=== PATIENT | male | born 1975 | race Caucasian/White ===

== ENCOUNTER 2023-10-25 12:47 | Inpatient (IN) | payer OTHER ==
[2023-10-25 13:03] VITALS: BMI 27.3
[2023-10-25] MEDS ORDERED: chlordiazePOXIDE HCL 25 MG CAPSULE PO PRN (13:12)
[2023-10-25] MEDS ORDERED: DICYCLOMINE HCL 10 MG CAPSULE PO PRN (13:16)
[2023-10-25] MEDS ORDERED: NICOTINE POLACRILEX 2 MG LOZENGE BC PRN (13:16)
[2023-10-25] MEDS ORDERED: BENZOCAINE/MENTHOL (CHLORASEPTIC ) LOZENGE MM PRN (13:16)
[2023-10-25] MEDS ORDERED: IBUPROFEN 400 MG TABLET (FP) PO PRN (13:16)
[2023-10-25] MEDS ORDERED: POLYETHYLENE GLYCOL (HEALTHYLAX) 3350 17 GM PACKET PO PRN (13:16)
[2023-10-25] MEDS ORDERED: NALOXONE HCL 0.4 MG/ML VIAL IM PRN (13:16)
[2023-10-25] MEDS ORDERED: BENZONATATE 200 MG CAPSULE PO PRN (13:16)
[2023-10-25] MEDS ORDERED: guaiFENesin 600 MG TABLET.ER (FP) PO PRN (13:16)
[2023-10-25] MEDS ORDERED: NALOXONE (NARCAN) HCL 4 MG/0.1 ML SPRAY NS PRN (13:16)
[2023-10-25] MEDS ORDERED: chlordiazePOXIDE HCL 25 MG CAPSULE ONE (13:42)
[2023-10-25] MEDS: chlordiazePOXIDE HCL 25 MG CAPSULE PO ONE (13:44)
[2023-10-25] MEDS: amLODIPine BESYLATE 10 MG TABLET (FP) PO SCH (14:58)
[2023-10-25] MEDS: METHOCARBAMOL 500 MG TABLET PO PRN (14:58)
[2023-10-25] MEDS: ATORVASTATIN CA 40 MG TABLET (FP) PO SCH (14:58)
[2023-10-25] MEDS: NICOTINE POLACRILEX 2 MG GUM BUC PRN (15:00)
[2023-10-25] MEDS: chlordiazePOXIDE HCL 25 MG CAPSULE PO SCH (17:50)
[2023-10-25] MEDS: IBUPROFEN 600 MG TABLET (FP) PO PRN (17:51)
[2023-10-25] MEDS: BUPRENORPHINE/NALOXONE 8 MG/2 MG FILM PACKET SL SCH (22:44)
[2023-10-25] MEDS: THIAMINE 100 MG TABLET PO SCH (22:44)
[2023-10-25] MEDS: MELATONIN 5 MG TABLETS PO SCH (22:44)
[2023-10-26] MEDS: FOLIC ACID 1 MG TABLET (FP) PO SCH (10:19)
[2023-10-26] MEDS: PRENATAL VITAMINS W/ FOLIC ACID TABLET (FP) PO SCH (10:19)
[2023-10-26 11:54] LABS: HEMATOCRIT 41.9 % (35.4-49); HEMOGLOBIN 13.9 GM/dL (11.7-16.9); MCH 30.8 pg (25.7-33.7); MCHC 33.3 g/dl (32.0-35.9); MEAN CELL VOLUME 92.6 fl (80-96); MEAN PLT VOLUME 8.8 fl (7.5-11.1); PLATELET COUNT 128 10^3/uL (134-434); RBC 4.52 M/mm3 (4.00-5.60); RDW 13.8 % (11.9-15.9)
[2023-10-26 12:22] LABS: CHLORIDE 102 mmol/L (98-107); POTASSIUM 3.3 mmol/L (3.5-5.1); SODIUM 140 mmol/L (136-145)
[2023-10-26 12:34] LABS: CREATININE 0.9 mg/dL (0.55-1.3)
[2023-10-26 12:35] LABS: BILIRUBIN,TOTAL 1.1 mg/dL (0.2-1); SGOT/AST 31 U/L (15-37)
[2023-10-26 12:36] LABS: ALBUMIN 2.9 g/dl (3.4-5.0); ALK PHOS 228 U/L (45-117); BLOOD UREA NITROGEN 7.3 mg/dL (7-18); GLUCOSE,RANDOM 98 mg/dL (74-106); TOT PROT 6.1 g/dl (6.4-8.2)
[2023-10-26 12:37] LABS: SGPT/ALT 20 U/L (13-61)
[2023-10-26 12:38] LABS: ANION GAP 11 mmol/L (4-13); CO2 27 mmol/L (21-32)
[2023-10-26] MEDS: GABAPENTIN 100 MG CAPSULE PO SCH (13:41)
[2023-10-26] MEDS ORDERED: PATIENT'S OWN MEDICATION (NON-FORMULARY) (Tizanidine Hcl 4 MG Tablet) PO PRN (13:43)
[2023-10-26] MEDS ORDERED: IBUPROFEN 400 MG TABLET (FP) PO PRN (15:09)
[2023-10-26] MEDS: IBUPROFEN 400 MG TABLET (FP) PO PRN (17:14)
[2023-10-26] MEDS: METHOCARBAMOL 500 MG TABLET PO PRN (22:14)
[2023-10-26] MEDS: QUEtiapine FUMARATE 100 MG TABLET (FP) PO SCH (22:14)
[2023-10-26] MEDS: traZODone HCL 100 MG TABLET (FP) PO SCH (22:14)
[2023-10-27] MEDS: chlordiazePOXIDE HCL 25 MG CAPSULE PO SCH (05:55)
[2023-10-27] MEDS: BISMUTH SUBSALICYLATE 524 MG/30 ML PO PRN (13:38)
[2023-10-27] MEDS: ACETAMINOPHEN 325 MG TABLET (FP) PO PRN (13:39)
[2023-10-27] MEDS: ONDANSETRON *ODT* 4 MG TABLET SL PRN (18:41)
[2023-10-28] MEDS ORDERED: chlordiazePOXIDE HCL 10 MG CAPSULE PO PRN
[2023-10-28] MEDS: chlordiazePOXIDE HCL 10 MG CAPSULE PO SCH (05:34)
[2023-10-28] MEDS: MAG HYDROX/AL HYDROX/SIMETH 30 ML UNIT-DOSE CUP PO PRN (10:22)
[2023-10-29] MEDS: chlordiazePOXIDE HCL 10 MG CAPSULE PO SCH (05:40)
[2023-10-29] MEDS: MAGNESIUM HYDROX 2400MG/30ML ORAL SUSPENSION 30 ML CUP PO PRN (16:47)
[2023-10-30] MEDS: chlordiazePOXIDE HCL 10 MG CAPSULE PO ONE (05:42)
[2023-10-30 08:56] VITALS: BP 106/64; PULSE 91; RESP 16; TEMP 97.3
[2023-10-30] MEDS: LOPERAMIDE HCL 2 MG CAPSULE PO PRN (09:47)
== END 2023-10-30 11:15 | disposition home or self-care (01) | DRG 773 ==
LOC: YASAS 12:47 → Y3N 13:26
PROVIDERS: ADMIT Allergy & Immunology; ATTEND Surgery
PROC: HZ2ZZZZ Detoxification Services for Substance Abuse Treatment (ICD-10-PCS; principal; 2023-10-25)
DX: F10.230 Alcohol dependence with withdrawal, uncomplicated (principal); F11.20 Opioid dependence, uncomplicated; F17.210 Nicotine dependence, cigarettes, uncomplicated; F43.10 Post-traumatic stress disorder, unspecified; F19.94 Other psychoactive substance use, unspecified with psychoactive substance-induced mood disorder; I10 Essential (primary) hypertension; E78.5 Hyperlipidemia, unspecified; G47.00 Insomnia, unspecified; M54.59 Other low back pain; G89.29 Other chronic pain; Z56.0 Unemployment, unspecified
CPT/HCPCS: 36415; 80053; 80305; 80307; 85027; 86780; 93005; 93010; Q0162